=== PATIENT | male | born 2000 | race Caucasian/White ===

== ENCOUNTER 2021-12-03 17:11 | Emergency (ER) | payer MEDICAID ==
[2021-12-03] MEDS ORDERED: SODIUM CHLORIDE 0.9% 1000 ML 1,000 ML IV ONE (17:30)
[2021-12-03] MEDS ORDERED: ONDANSETRON 4 MG/2 ML INJ IV ONE (17:30)
[2021-12-03] MEDS ORDERED: DICYCLOMINE 20 MG/2 ML INJ IM ONE (17:31)
[2021-12-03 17:32] VITALS: BP 131/74
[2021-12-03 17:55] LABS: Hematocrit 41.7 % (35.5-45.6); Mean Corpuscular HGB Conc 34 % (32-34); Mean Corpuscular Volume 89 fl (84-94); Platelet Count 220 K/mm3 (140-440); Red Blood Count 4.68 M/mm3 (3.65-5.03); Red Cell Distribution Width 12.3 % (13.2-15.2)
[2021-12-03 18:16] LABS: Alanine Aminotransferase 11 units/L (7-56); Albumin 5.2 g/dL (3.9-5); Blood Urea Nitrogen 12 mg/dL (9-20); Hemolysis Index 19
[2021-12-03 18:25] LABS: BUN/Creatinine Ratio 20
== END 2021-12-04 02:04 | disposition left against medical advice (07) ==
LOC: ED 17:11
DX: R11.10 Vomiting, unspecified (principal); Z53.21 Procedure and treatment not carried out due to patient leaving prior to being seen by health care provider
CPT/HCPCS: 36415; 80053; 83690; 85027

== ENCOUNTER 2021-12-04 09:13 | Observation (INO) | payer MEDICAID ==
--- NOTE | 2021-12-04 10:46 | Emergency Department Report ---
ED Abdominal Pain HPI - General Chief Complaint: Abdominal Pain Stated Complaint: STOMACH PAIN Time Seen by Provider: 12/04/21 10:38 Source: EMS Mode of arrival: Stretcher Limitations: No Limitations - History of Present Illness Initial Comments: 21-year-old male presents to the ER with lower abdominal pain for 2 days with nausea and vomiting and decreased appetite. Patient reports he is unable to hold down any fluids or food. Patient reports taking nothing for symptoms. Patient denies diarrhea. Patient denies any abdominal surgery. Patient denies any suspicious food intake. Patient denies being around any sick contacts. MD Complaint: abdominal pain Onset/Timin -: days(s) - Related Data Previous Rx's Medication Instructions Recorded Last Taken Type oxyCODONE /ACETAMINOPHEN [Percocet 1 tab PO Q6H PRN #10 tablet 12/05/21 Unknown Rx 5/325 mg] Allergies Allergy/AdvReac Type Severity Reaction Status Date / Time raspberry Allergy Itching Verified 12/04/21 10:59 ED Review of Systems ROS: Stated complaint: STOMACH PAIN Other details as noted in HPI Comment: All other systems reviewed and negative Gastrointestinal: abdominal pain, nausea, vomiting. denies: diarrhea Genitourinary: denies: urgency, dysuria Skin: denies: rash ED Past Medical Hx - Medications Home Medications: Home Medications Medication Instructions Recorded Confirmed Last Taken Type oxyCODONE /ACETAMINOPHEN [Percocet 1 tab PO Q6H PRN #10 tablet 12/05/21 Unknown Rx 5/325 mg] ED Physical Exam - General Limitations: No Limitations General appearance: alert, in no apparent distress - Head Head exam: Present: atraumatic, normocephalic - Eye Eye exam: Present: normal appearance - ENT ENT exam: Present: mucous membranes moist - Neck Neck exam: Present: normal inspection - Respiratory Respiratory exam: Present: normal lung sounds bilaterally. Absent: respiratory distress - Cardiovascular Cardiovascular Exam: Present: regular rate, normal rhythm. Absent: systolic murmur, diastolic murmur, rubs, gallop - GI/Abdominal GI/Abdominal exam: Present: soft, tenderness, guarding, rebound, normal bowel sounds - Rectal Rectal exam: Present: deferred - Extremities Exam Extremities exam: Present: normal inspection - Back Exam Back exam: Present: normal inspection - Neurological Exam Neurological exam: Present: alert, oriented X3 - Psychiatric Psychiatric exam: Present: normal affect, normal mood - Skin Skin exam: Present: warm, dry, intact, normal color. Absent: rash ED Course Vital Signs 12/04/21 09:15 Temperature 99.2 F Pulse Rate 80 Respiratory 20 Rate Blood Pressure 149/93 [Right] O2 Sat by Pulse 100 Oximetry ED Medical Decision Making - Lab Data Result diagrams: 12/05/21 05:22 12/05/21 05:22 - Radiology Data Radiology results: report reviewed [facility] [address] [place] [address] Cat Scan Report Signed Patient: ELIZA JULIEN MR#: [id number] : 2000 Acct:[id number] Age/Sex: 21 / M ADM Date: 12/04/21 Loc: ED Attending Dr: Ordering Physician: VICENTE FIGUEROA NP Date of Service: 12/04/21 Procedure(s): CT abdomen pelvis w con Accession Number(s): [id number] cc: VICENTE FIGUEROA NP CT ABDOMEN AND PELVIS WITH CONTRAST HISTORY: lower abdominal pain - rule out appenditis. COMPARISON: None. TECHNIQUE: CT images of the abdomen and pelvis were obtained following administration of intravenous contrast. All CT scans at this location are performed using CT dose reduction for ALARA by means of automated exposure control. CONTRAST: 100 ml of intravenous contrast administered. FINDINGS: Lungs/bones: Lung bases are clear. No acute osseous abnormality identified. Abdomen/pelvis: There is mild periportal edema. The liver and biliary tree appear normal otherwise. Gallbladder is normal. The spleen, pancreas, adrenals, right kidney, and proximal GI tract appear unremarkable. There is a simple cyst in the upper pole of the left kidney. Urinary bladder and prostate appear unremarkable with no pelvic free fluid identified. Terminal ileum is normal. The appendix is dilated and fluid-filled with wall thickening and enhancement. The appendix measures 11 mm on image 118 of series 2. No free air or abscess to suggest perforation. No bowel obstruction. IMPRESSION: 1. Acute uncomplicated appendicitis. Signer Name: Simon Fuentes MD Signed: 12/04/2021 2:38 PM Workstation Name: [id number] Transcribed By: CORNELIA Dictated By: Simon Fuentes MD Electronically Authenticated By: Simon Fuentes MD Signed Date/Time: 12/04/21 1438 DD/ 1433 TD/TT: - Medical Decision Making 20-year-old male with no significant past medical history reports to the ER with lower abdominal pain pain for 2 days with nausea vomiting with also decrease in appetite. Patient unable to eat and drink due to nausea and vomiting. On physical exam patient has right lower quadrant pain with positive rebound tenderness. WBC is 18 CMP with no acute process noted CT of abdomen pelvis with contrastacute uncomplicated appendicitis noted. See CT report for more details. Started patient on Zosyn 3.375 mg IV. Paged surgery spoke with Dr. Hernandez around 1500 for patient to be admitted. Dr. Hernandez to see patient in ER. Patient reports a decrease in pain. Disposition is admission to surgery. Vital Signs 12/04/21 09:15 Temperature 99.2 F Pulse Rate 80 Respiratory 20 Rate Blood Pressure 149/93 [Right] O2 Sat by Pulse 100 Oximetry Lab Results 12/04/21 12/04/21 12/04/21 Range/Units 10:15 11:54 11:54 WBC 18.0 H (4.5-11.0) K/mm3 RBC 4.78 (3.65-5.03) M/mm3 Hgb 14.5 (11.8-15.2) gm/dl Hct 42.9 (35.5-45.6) % MCV 90 (84-94) fl MCH 30 (28-32) pg MCHC 34 (32-34) % RDW 12.7 L (13.2-15.2) % Plt Count 227 (140-440) K/mm3 Sodium 137 (137-145) mmol/L Potassium 3.9 (3.6-5.0) mmol/L Chloride 98.7 (98-107) mmol/L Carbon Dioxide 20 L (22-30) mmol/L Anion Gap 22 mmol/L BUN 10 (9-20) mg/dL Creatinine 0.6 L (0.8-1.3) mg/dL Estimated GFR > 60 ml/min BUN/Creatinine Ratio 17 % Glucose 89 (75-100) mg/dL Calcium 9.8 (8.4-10.2) mg/dL Total Bilirubin 1.40 H (0.1-1.2) mg/dL AST 14 (5-40) units/L ALT 9 (7-56) units/L Alkaline Phosphatase 55 (35-129) units/L Total Protein 7.8 (6.3-8.2) g/dL Albumin 5.1 H (3.9-5) g/dL Albumin/Globulin Ratio 1.9 % Lipase 8 L (13-60) units/L Urine Color Yellow (Yellow) Urine Turbidity Clear (Clear) Urine pH 7.0 (5.0-7.0) Ur Specific [place] 1.025 (1.003-1.030) Urine Protein 100 mg/dl (Negative) mg/dL Urine Glucose (UA) Negative (Negative) mg/dL Urine Ketones 3+ (Negative) mg/dL Urine Blood Negative (Negative) Urine Nitrite Negative (Negative) Urine Bilirubin Negative (Negative) Urine Urobilinogen 0.0 (<2.0) mg/dL Ur Leukocyte Esterase Negative (Negative) Urine WBC (Auto) < 1.0 (0.0-6.0) /HPF Urine RBC (Auto) 5.0 (0.0-6.0) /HPF U Epithel Cells (Auto) 1.0 (0-13.0) /HPF Critical care attestation.: If time is entered above; I have spent that time in minutes in the direct care of this critically ill patient, excluding procedure time. ED Disposition Clinical Impression: Acute appendicitis Qualifiers: Acute appendicitis type: other Qualified Code(s): K35.890 - Other acute appendicitis without perforation or gangrene Disposition: 09 ADMITTED INPATIENT Is pt being admited?: Yes Condition: Stable
[2021-12-04 10:57] LABS: Color,Urine Yellow (Yellow)
[2021-12-04 10:58] LABS: Bilirubin,Urine Negative (Negative)
[2021-12-04 10:59] LABS: Blood,Urine Negative (Negative)
[2021-12-04] MEDS ORDERED: MORPHINE 4 MG/1 ML INJ IV ONE (12:00)
[2021-12-04] MEDS ORDERED: ONDANSETRON 4 MG/2 ML INJ IV ONE (12:00)
[2021-12-04] MEDS ORDERED: SODIUM CHLORIDE 0.9% 1000 ML 1,000 ML IV ONE (12:00)
[2021-12-04 13:00] LABS: Alanine Aminotransferase 9 units/L (7-56); Albumin 5.1 g/dL (3.9-5); Blood Urea Nitrogen 10 mg/dL (9-20); Calcium 9.8 mg/dL (8.4-10.2); Hemolysis Index 23
[2021-12-04 13:01] LABS: BUN/Creatinine Ratio 17
[2021-12-04 13:23] LABS: WBC,Urine < 1.0 /HPF (0.0-6.0)
[2021-12-04 13:25] LABS: Hematocrit 42.9 % (35.5-45.6); Hemoglobin 14.5 gm/dl (11.8-15.2); Mean Corpuscular HGB Conc 34 % (32-34); Mean Corpuscular Volume 90 fl (84-94); Platelet Count 227 K/mm3 (140-440); Red Blood Count 4.78 M/mm3 (3.65-5.03); Red Cell Distribution Width 12.7 % (13.2-15.2)
--- NOTE | 2021-12-04 14:42 | Cat Scan Report ---
CT ABDOMEN AND PELVIS WITH CONTRAST HISTORY: lower abdominal pain - rule out appenditis. COMPARISON: None. TECHNIQUE: CT images of the abdomen and pelvis were obtained following administration of intravenous contrast. All CT scans at this location are performed using CT dose reduction for ALARA by means of automated exposure control. CONTRAST: 100 ml of intravenous contrast administered. FINDINGS: Lungs/bones: Lung bases are clear. No acute osseous abnormality identified. Abdomen/pelvis: There is mild periportal edema. The liver and biliary tree appear normal otherwise. Gallbladder is normal. The spleen, pancreas, adrenals, right kidney, and proximal GI tract appear unremarkable. There is a s imple cyst in the upper pole of the left kidney. Urinary bladder and prostate appear unremarkable with no pelvic free fluid identified. Terminal ileum is normal. The appendix is dilated and fluid-filled with wall thickening and enhancement. The append ix measures 11 mm on image 118 of series 2. No free air or abscess to suggest perforation. No bowel o bstruction. IMPRESSION: 1. Acute uncomplicated appendicitis. Signer Name: Simon Fuentes MD Signed: 12/04/2021 2:38 PM Workstation Name: [email or web address]
[2021-12-04] MEDS ORDERED: PIPERACILLIN/TAZOBACTAM 3.375 3.375 GM/50 ML BAG IV ONE (15:09)
--- NOTE | 2021-12-04 16:28 | History and Physical Report ---
History of Present Illness Chief complaint: It feels like something is crawling in my stomach History of present illness: 21 YO Male with no PMH presents to ED for evaluation. Patient reports "my stomach hurts". Patient states that he has experienced abdominal pain over the past 2 days with persistent symptoms over the same timeframe. Patient knowledges nausea, multiple episodes of vomiting, and diminished oral intake. Patient acknowledges inability to hold down liquids or solids. EMS was notified and upon arrival the patient was found to be in distress and subsequently transported to [facility] for further care and evaluation of the aforementioned symptoms. The patient was seen and evaluated in the emergency department. All lab and imaging studies reviewed. Patient with CT scan of the abdomen and pelvis and was found to have acute appendicitis, volume depletion, as well as systemic inflammatory response syndrome. Patient admitted to medical floor due to increased risk of worsening symptoms and for medical stabilization. Surgery team consulted in ED. Patient is pending surgical intervention. Patient denies fever, chills, chest pain, palpitation, productive cough, skin rash, recent contact, ingestion of food/water from new or different sources, or known exposure to COVID-19. No prior admission for review. No medication listed at time of admission for reconciliation. Advanced care planning conducted in ED. Past History Past Medical History: No medical history, other (Reviewed) Past Surgical History: No surgical history, Other (Reviewed) Social history: single, Lives alone. denies: smoking, alcohol abuse, prescription drug abuse Family history: hypertension Medications and Allergies Allergies Allergy/AdvReac Type Severity Reaction Status Date / Time raspberry Allergy Itching Verified 12/04/21 10:59 Review of Systems Constitutional: no weight loss, no weight gain, no fever, no sweats Ears, nose, mouth and throat: no ear pain, no tinnitis, no decreased hearing, no nose pain Cardiovascular: no chest pain, no orthopnea, no edema Respiratory: no cough, no cough with sputum, no excessive sputum, no hemoptysis Gastrointestinal: abdominal pain, nausea, vomiting, no constipation, no change in bowel habits, no hematemesis, no BRBPR, no loss of appetite Genitourinary Male: no hematuria, no flank pain, no discharge, no urinary frequency, no urinary hesitancy Rectal: no pain, no incontinence, no bleeding Musculoskeletal: no neck stiffness, no neck pain, no shooting arm pain, no low back pain Integumentary: no rash, no pruritis, no redness, no sores Neurological: no transient paralysis, no paralysis, no weakness, no numbness, no tingling, no seizures, no tremors Psychiatric: no anxiety, no sleep disturbances, no insomnia, no hypersomnia, no change in appetite, no change in libido Endocrine: no cold intolerance, no heat intolerance, no excessive thirst, no nocturia, no excessive sweating, no flushing, no weight change Hematologic/Lymphatic: no easy bruising, no lymphadenopathy, no lymphedema Allergic/Immunologic: no urticaria, no anaphylaxis Exam - Constitutional Vitals: Temp Pulse Resp BP Pulse Ox 99.2 F 80 20 149/93 100 12/04/21 09:15 12/04/21 09:15 12/04/21 09:15 12/04/21 09:15 12/04/21 09:15 General appearance: Present: mild distress - EENT Eyes: Present: PERRL ENT: hearing intact, clear oral mucosa - Neck Neck: Present: supple, normal ROM - Respiratory Respiratory effort: normal Respiratory: bilateral: CTA - Cardiovascular Heart Sounds: Present: S1 & S2. Absent: rub, click - Extremities Extremities: pulses symmetrical, No edema Peripheral Pulses: within normal limits - Abdominal General gastrointestinal: Present: soft, tender, non-distended, normal bowel sounds Localized gastrointestinal: tender: RLQ Male genitourinary: Present: normal - Rectal Rectal Exam: normal exam-external/orifice, normal rectal tone, nodular, tenderness - Integumentary Integumentary: Present: clear, warm, dry - Musculoskeletal Musculoskeletal: gait normal, strength equal bilaterally - Psychiatric Psychiatric: appropriate mood/affect, intact judgment & insight - Neurologic Neurologic: CNII-XII intact, moves all extremities Results - Labs CBC & Chem 7: 12/04/21 11:54 12/04/21 11:54 Labs: Abnormal lab results 12/04/21 12/04/21 Range/Units 11:54 11:54 WBC 18.0 H (4.5-11.0) K/mm3 RDW 12.7 L (13.2-15.2) % Carbon Dioxide 20 L (22-30) mmol/L Creatinine 0.6 L (0.8-1.3) mg/dL Total Bilirubin 1.40 H (0.1-1.2) mg/dL Albumin 5.1 H (3.9-5) g/dL Lipase 8 L (13-60) units/L Assessment and Plan - Patient Problems (1) Acute appendicitis Current Visit: Yes Status: Acute Qualifiers: Acute appendicitis type: other Qualified Code(s): K35.890 - Other acute appendicitis without perforation or gangrene; K35.89 - Other acute appendicitis Plan to address problem: Bowel rest, IV fluid resuscitation therapy, CT scan abdomen and pelvis, serial abdominal exam, patient is pending surgical intervention at this time. IV antibiotic therapy. (2) Volume depletion Current Visit: Yes Status: Acute Plan to address problem: IV fluid resuscitation therapy, monitor fluid balance. (3) SIRS (systemic inflammatory response syndrome) Current Visit: Yes Status: Acute Plan to address problem: CBC, chest x-ray, urinalysis, IV antibiotic therapy, supportive care. Repeat CBC in a.m. (4) Intractable nausea and vomiting Current Visit: Yes Status: Acute Plan to address problem: Antiemetic therapy, bowel rest, supportive care. (5) DVT prophylaxis Current Visit: Yes Status: Acute Plan to address problem: SCDs to bilateral lower extremities while in bed (6) Advance care planning Current Visit: Yes Status: Acute Plan to address problem: Disease education data, care plan discussed, diagnoses discussed, prognosis discussed, patient acknowledges understanding and agreement with care plan, +30 minutes. (7) Preventative health care Current Visit: Yes Status: Acute Plan to address problem: Patient counseled regarding safe driving, risk factor reduction, balanced diet, outpatient follow-up with primary care physician for all age and risk factor appropriate screening test. +30 minutes.
[2021-12-04] MEDS ORDERED: oxyCODONE /ACETAMINOPHEN 5-325MG TAB PO PRN (16:29)
[2021-12-04] MEDS ORDERED: ACETAMINOPHEN 325 MG TAB PO PRN (16:29)
[2021-12-04] MEDS ORDERED: ONDANSETRON 4 MG/2 ML INJ IV PRN ×2 (16:29→19:00)
[2021-12-04] MEDS ORDERED: HYDROmorphone 0.5 MG/0.5 ML INJ IV PRN ×2 (16:29→19:00)
[2021-12-04] MEDS ORDERED: ALBUTEROL 2.5 MG/3 ML NEBU IH PRN (16:29)
--- NOTE | 2021-12-04 16:38 | Consultation ---
History of Present Illness Consult date: 12/04/21 Reason for consult: abdominal pain - History of present illness History of present illness: 20-year-old male with no significant past medical history reports to the ER with lower abdominal pain pain for 2 days with nausea vomiting with also decrease in appetite. Patient unable to eat and drink due to nausea and vomiting. On physical exam patient has right lower quadrant pain with positive rebound tenderness. WBC is 18 CMP with no acute process noted CT of abdomen pelvis with contrastacute uncomplicated appendicitis noted. Medications and Allergies Allergies Allergy/AdvReac Type Severity Reaction Status Date / Time sriram Allergy Itching Verified 12/04/21 10:59 Active Meds: Active Medications Acetaminophen (Acetaminophen 325 Mg Tab) 650 mg PO Q4H PRN PRN Reason: Pain MILD(1-3)/Fever >100.5/BRAXTON Albuterol (Albuterol 2.5 Mg/3 Ml Nebu) 2.5 mg IH Q4HRT PRN PRN Reason: Shortness Of Breath Hydromorphone HCl (Hydromorphone 0.5 Mg/0.5 Ml Inj) 0.5 mg IV Q13H PRN PRN Reason: Pain , Severe (7-10) Sodium Chloride (Nacl 0.9% 1000 Ml) 1,000 mls @ 125 mls/hr IV DIRECT CELIA Ondansetron HCl (Ondansetron 4 Mg/2 Ml Inj) 4 mg IV Q8H PRN PRN Reason: Nausea And Vomiting Oxycodone/Acetaminophen (Oxycodone /Acetaminophen 5-325mg Tab) 1 tab PO Q6H PRN PRN Reason: Pain, Moderate (4-6) Sodium Chloride (Sodium Chloride 0.9% 10 Ml Flush Syringe) 10 ml IV BID CELIA Sodium Chloride (Sodium Chloride 0.9% 10 Ml Flush Syringe) 10 ml IV PRN PRN PRN Reason: LINE FLUSH Exam Vital Signs Temp Pulse Resp BP Pulse Ox 99.2 F 80 20 149/93 100 12/04/21 09:15 12/04/21 09:15 12/04/21 09:15 12/04/21 09:15 12/04/21 09:15 - General physical appearance Positive: moderate distress - Neck Positive: no masses, no bruits, trachea midline - Respiratory Positive: normal expansion - Cardiovascular Rhythm: regular - Extremities Extremities: no ischemia, No edema - Abdomen Abdomen: Present: soft, tender, rebound. Absent: distended, masses - Neurologic Neurologic: alert and oriented to time, place and person, motor strength and sensation are grossly intact, CN II-XII intact Results - Labs 12/04/21 11:54 12/04/21 11:54 Abnormal lab results 12/04/21 12/04/21 Range/Units 11:54 11:54 WBC 18.0 H (4.5-11.0) K/mm3 RDW 12.7 L (13.2-15.2) % Carbon Dioxide 20 L (22-30) mmol/L Creatinine 0.6 L (0.8-1.3) mg/dL Total Bilirubin 1.40 H (0.1-1.2) mg/dL Albumin 5.1 H (3.9-5) g/dL Lipase 8 L (13-60) units/L Diabetes panel 12/04/21 Range/Units 11:54 Sodium 137 (137-145) mmol/L Potassium 3.9 (3.6-5.0) mmol/L Chloride 98.7 (98-107) mmol/L Carbon Dioxide 20 L (22-30) mmol/L BUN 10 (9-20) mg/dL Creatinine 0.6 L (0.8-1.3) mg/dL Glucose 89 (75-100) mg/dL Calcium 9.8 (8.4-10.2) mg/dL AST 14 (5-40) units/L ALT 9 (7-56) units/L Alkaline Phosphatase 55 (35-129) units/L Total Protein 7.8 (6.3-8.2) g/dL Albumin 5.1 H (3.9-5) g/dL Calcium panel 12/04/21 Range/Units 11:54 Calcium 9.8 (8.4-10.2) mg/dL Albumin 5.1 H (3.9-5) g/dL Pituitary panel 12/04/21 Range/Units 11:54 Sodium 137 (137-145) mmol/L Potassium 3.9 (3.6-5.0) mmol/L Chloride 98.7 (98-107) mmol/L Carbon Dioxide 20 L (22-30) mmol/L BUN 10 (9-20) mg/dL Creatinine 0.6 L (0.8-1.3) mg/dL Glucose 89 (75-100) mg/dL Calcium 9.8 (8.4-10.2) mg/dL Adrenal panel 12/04/21 Range/Units 11:54 Sodium 137 (137-145) mmol/L Potassium 3.9 (3.6-5.0) mmol/L Chloride 98.7 (98-107) mmol/L Carbon Dioxide 20 L (22-30) mmol/L BUN 10 (9-20) mg/dL Creatinine 0.6 L (0.8-1.3) mg/dL Glucose 89 (75-100) mg/dL Calcium 9.8 (8.4-10.2) mg/dL Total Bilirubin 1.40 H (0.1-1.2) mg/dL AST 14 (5-40) units/L ALT 9 (7-56) units/L Alkaline Phosphatase 55 (35-129) units/L Total Protein 7.8 (6.3-8.2) g/dL Albumin 5.1 H (3.9-5) g/dL Assessment and Plan 20-year-old male with no significant past medical history reports to the ER with lower abdominal pain pain for 2 days with nausea vomiting with also decrease in appetite. Patient unable to eat and drink due to nausea and vomiting. On physical exam patient has right lower quadrant pain with positive rebound tenderness. WBC is 18 CMP with no acute process noted CT of abdomen pelvis with contrastacute uncomplicated appendicitis noted. Plan lap appendectomy this evening.
[2021-12-04] MEDS ORDERED: LIDOCAINE (1%) 10 MG/1 ML VIAL 20 ML MDV ONE (16:57)
[2021-12-04] MEDS ORDERED: BUPIVACAINE-EPINEPHRINE/PF 0.5%-1:200,000 (30 ML) VIAL INFILTRATI ONE ×2 (16:57→18:12)
--- NOTE | 2021-12-04 17:27 | Anesthesia Consultation ---
Anesthesia Consult and Med Hx Date of service: 12/04/21 - Airway Anesthetic Teeth Evaluation: Good, Crowns ROM Head & Neck: Adequate Mental/Hyoid Distance: Adequate Mallampati Class: Class I Intubation Access Assessment: Good - Pulmonary Exam CTA: Yes - Pre-Operative Health Status ASA Pre-Surgery Classification: ASA2, Emergency Proposed Anesthetic Plan: General - Pulmonary Hx Smoking: Yes (Marijuana daily) SOB: Yes Home Oxygen Therapy: No Hx Sleep Apnea: No - Cardiovascular System Hx Hypertension: No Hx Heart Murmur: Yes - Central Nervous System Hx Neuromuscular Disorder: No Hx Seizures: No Hx Psychiatric Problems: No - Gastrointestinal Hx Ulcer: No Hx Gastroesophageal Reflux Disease: No - Endocrine Hx Renal Disease: No Hx Liver Disease: No Hx Insulin Dependent Diabetes: No Hx Non-Insulin Dependent Diabetes: No Hx Thyroid Disease: No - Hematic Hx Anemia: No - Other Systems Hx Alcohol Use: No Hx Substance Use: Yes (marijuana daily) Hx Obesity: No - Additional Comments Anesthesia Medical History Comments: Denied previous anethesia complications
--- NOTE | 2021-12-04 17:28 | Anesthesia Day of Surgery ---
Anesthesia Day of Surgery - Day of Surgery Patient Examined: Yes Patient H&P Reviewed: Yes Patient is NPO: Yes Beta Blockers: No Cardiac Clearance: No Pulmonary Clearance: No
[2021-12-04] MEDS ORDERED: LIDOCAINE MPF (2%) 20 MG/1 ML VIAL 5 ML ONE (17:34)
[2021-12-04] MEDS ORDERED: ROCURONIUM 50 MG/5 ML INJ IV ONE (17:34)
[2021-12-04] MEDS ORDERED: ONDANSETRON 4 MG/2 ML INJ ONE (17:34)
[2021-12-04] MEDS ORDERED: propofoL 200 MG/20 ML VIAL IV ONE (17:35)
[2021-12-04] MEDS ORDERED: HYDROmorphone 1 MG/1 ML INJ ONE (17:35)
[2021-12-04] MEDS ORDERED: LIDOCAINE (1%) 10 MG/1 ML VIAL 20 ML MDV INFILTRATI ONE (18:12)
[2021-12-04] MEDS ORDERED: SODIUM CHLORIDE 0.9% IRR 1,500 ML BOTTLE IR ONE (18:13)
[2021-12-04] MEDS ORDERED: dexAMETHasone 20 MG/5 ML VIAL ONE (18:29)
[2021-12-04] MEDS ORDERED: GLYCOPYRROLATE 0.4 MG/2 ML INJ ONE (18:29)
[2021-12-04] MEDS ORDERED: NEOSTIGMINE 10MG/10 ML INJ MDV ONE (18:29)
[2021-12-04] MEDS ORDERED: LACTATED RINGERS 1,000 ML ONE (18:30)
[2021-12-04] MEDS ORDERED: KETOROLAC 30 MG/1 ML INJ ONE (18:34)
--- NOTE | 2021-12-04 18:38 | Operative Report ---
Operative Report Operative Report: Procedure date: 12/04/2021 Preop diagnosis: Acute appendicitis Postop diagnosis: Same Procedure: Laparoscopic appendectomy Surgeon: Dr. Hernandez Anesthesia: General endotracheal Estimated blood loss: 20 cc Specimen: Appendix Findings: This patient presents with a acute appendicitis diagnosed on CAT scan. He notes that he get in trouble he is taken to the OR and under general endotracheal anesthesia timeouts and consents are obtained. An Bhatt catheter is placed. Abdomen is prepped with ChloraPrep and 3 minutes later draped in a sterile fashion. A 2 mm incision is made in the l supraumbilical position and Veress needle was used to gain access peritoneal cavity. Abdomen is insufflated with CO2. 5 Lopez port is placed in the right upper quadrant and in the low midline. A 11 mm port is placed supraumbilically. The appendix is identified in the right lower quadrant and grasped with grasper s. The endoscopic LIANET stapler is used to separate the appendix from the base of the cecum. Harmonic scalpel was used to divide the mesoappendix. Specimen is then placed in a specimen bag and extracted through the 11 mm port. The fascial defect is then closed with a Carlos Henderson system and a 2-0 Vicryl stitch. Skin is then closed with 4-0 Monocryl and Dermabond.
--- NOTE | 2021-12-04 19:28 | Post Anesthesia Evaluation ---
- Post Anesthesia Evaluation Patient Participated: Yes Airway Patent: Yes Stable Respiratory Function: Yes Nausea/Vomiting: No Temp > 96.8F: Yes Pain Manageable: Yes Adequeate Hydration: Yes Anesthesia Complications: No Block Receding Appropriately: Not Applicable Patient on Ventilator: No
[2021-12-04] MEDS: SODIUM CHLORIDE 0.9% 1000 ML 1,000 ML IV SCH (21:09)
[2021-12-05 06:20] LABS: Hematocrit 38.5 % (35.5-45.6); Hemoglobin 13.1 gm/dl (11.8-15.2); Mean Corpuscular HGB Conc 34 % (32-34); Mean Corpuscular Volume 89 fl (84-94); Platelet Count 215 K/mm3 (140-440); Red Blood Count 4.31 M/mm3 (3.65-5.03); Red Cell Distribution Width 12.8 % (13.2-15.2)
[2021-12-05] MEDS: SODIUM CHLORIDE 0.9% 1000 ML 1,000 ML IV SCH (06:37)
[2021-12-05 06:44] LABS: BUN/Creatinine Ratio 13; Blood Urea Nitrogen 8 mg/dL (9-20); Calcium 8.9 mg/dL (8.4-10.2); Hemolysis Index 5
[2021-12-05] MEDS ORDERED: PIPERACILLIN/TAZOBACTAM 3.375 3.375 GM/50 ML BAG IV SCH (08:00)
[2021-12-05 08:10] LABS: Basophils % (Manual) 0 % (0.0-1.8); Eosinophils % (Manual) 0 % (0.0-4.3); Total Cells Counted 100
[2021-12-05 08:11] LABS: Platelet Estimate Consistent w Auto; RBC Morphology Normal
--- NOTE | 2021-12-05 09:19 | Progress Note ---
Assessment and Plan 20-year-old male with no significant past medical history reports to the ER with lower abdominal pain pain for 2 days with nausea vomiting with also decrease in appetite. Patient unable to eat and drink due to nausea and vomiting. On physical exam patient has right lower quadrant pain with positive rebound tenderness. WBC is 18 CMP with no acute process noted CT of abdomen pelvis with contrastacute uncomplicated appendicitis noted. Plan lap appendectomy completed yesterday evening. Patient feels well today. Okay to discharge today. Follow-up with me in 1 week Subjective Date of service: 12/05/21 Patient Reports: Positive: no new complaints, feels better, tolerating a regular diet, flatus Objective Vital Signs - 12hr 12/04/21 12/05/21 12/05/21 21:28 05:42 06:29 Temperature 97.9 F 98.8 F Pulse Rate 72 55 L Respiratory 14 20 Rate Blood Pressure 136/60 132/55 O2 Sat by Pulse 98 98 98 Oximetry - Labs 12/05/21 05:22 12/05/21 05:22 Diabetes panel 12/04/21 12/05/21 Range/Units 11:54 05:22 Sodium 137 139 (137-145) mmol/L Potassium 3.9 3.9 (3.6-5.0) mmol/L Chloride 98.7 100.9 (98-107) mmol/L Carbon Dioxide 20 L 23 (22-30) mmol/L BUN 10 8 L (9-20) mg/dL Creatinine 0.6 L 0.6 L (0.8-1.3) mg/dL Glucose 89 98 (75-100) mg/dL Calcium 9.8 8.9 (8.4-10.2) mg/dL AST 14 (5-40) units/L ALT 9 (7-56) units/L Alkaline Phosphatase 55 (35-129) units/L Total Protein 7.8 (6.3-8.2) g/dL Albumin 5.1 H (3.9-5) g/dL Calcium panel 12/04/21 12/05/21 Range/Units 11:54 05:22 Calcium 9.8 8.9 (8.4-10.2) mg/dL Albumin 5.1 H (3.9-5) g/dL Pituitary panel 12/04/21 12/05/21 Range/Units 11:54 05:22 Sodium 137 139 (137-145) mmol/L Potassium 3.9 3.9 (3.6-5.0) mmol/L Chloride 98.7 100.9 (98-107) mmol/L Carbon Dioxide 20 L 23 (22-30) mmol/L BUN 10 8 L (9-20) mg/dL Creatinine 0.6 L 0.6 L (0.8-1.3) mg/dL Glucose 89 98 (75-100) mg/dL Calcium 9.8 8.9 (8.4-10.2) mg/dL Adrenal panel 12/04/21 12/05/21 Range/Units 11:54 05:22 Sodium 137 139 (137-145) mmol/L Potassium 3.9 3.9 (3.6-5.0) mmol/L Chloride 98.7 100.9 (98-107) mmol/L Carbon Dioxide 20 L 23 (22-30) mmol/L BUN 10 8 L (9-20) mg/dL Creatinine 0.6 L 0.6 L (0.8-1.3) mg/dL Glucose 89 98 (75-100) mg/dL Calcium 9.8 8.9 (8.4-10.2) mg/dL Total Bilirubin 1.40 H (0.1-1.2) mg/dL AST 14 (5-40) units/L ALT 9 (7-56) units/L Alkaline Phosphatase 55 (35-129) units/L Total Protein 7.8 (6.3-8.2) g/dL Albumin 5.1 H (3.9-5) g/dL
[2021-12-05 12:50] VITALS: BP 122/59
--- NOTE | 2021-12-05 13:42 | Discharge Summary ---
Providers - Providers Date of Admission: 12/04/21 16:29 Date of discharge: 12/05/21 Attending physician: ROBERT FAJARDO Primary care physician: EFREM ROOT MD Hospitalization Condition: Stable Hospital course: 20-year-old male with no significant past medical history reports to the ER with lower abdominal pain pain for 2 days with nausea vomiting with also decrease in appetite. Patient unable to eat and drink due to nausea and vomiting. On physical exam patient has right lower quadrant pain with positive rebound tenderness. WBC was 18 CMP with no acute process noted CT of abdomen pelvis with contrastacute uncomplicated appendicitis noted. s/p lap appendectomy by Dr HOANG completed yesterday evening. Patient feels well today. Okay to discharge today. Follow-up with [facility] in 1 week Disposition: 01 HOME / SELF CARE / HOMELESS Final Discharge Diagnosis (Prints w/discharge instructions): -- Acute appendicitis, status post laparoscopic appendectomy. -- Acute peritonitis due to acute appendicitis, POA. resolved. -- volume depletion, resolved. -- N/V, due to appendicitis, resolved Time spent for discharge: 34 minutes Core Measure Documentation - Palliative Care Palliative Care/ Comfort Measures: Not Applicable - Core Measures Any of the following diagnoses?: none Exam - Physical Exam Narrative exam: Vitals noted and stable - Constitutional Vitals: Temp Pulse Resp BP Pulse Ox 98.3 F 54 L 18 122/59 98 12/05/21 11:29 12/05/21 11:29 12/05/21 11:29 12/05/21 11:29 12/05/21 12:56 Plan Activity: advance as tolerated Weight Bearing Status: Non-Weight Bearing Diet: regular Follow up with: EFREM ROOT MD [Primary Care Provider] - 3-5 Days DONALD HOANG MD [Staff Physician] - 7 Days Prescriptions: oxyCODONE /ACETAMINOPHEN [Percocet 5/325 mg] 1 tab PO Q6H PRN #10 tablet PRN Reason: Pain, Moderate (4-6)
== END 2021-12-05 14:10 | disposition home or self-care (01) ==
LOC: ED 09:13 → 3A 16:29 → INTOOBSV 16:29 → MERGE 16:29 → 3A 18:12
PROVIDERS: ADMIT Internal Medicine; ATTEND Internal Medicine
DX: K35.33 Acute appendicitis with perforation, localized peritonitis, and gangrene, with abscess (principal); R65.10 Systemic inflammatory response syndrome (SIRS) of non-infectious origin without acute organ dysfunction; E86.9 Volume depletion, unspecified; R11.2 Nausea with vomiting, unspecified; Z79.899 Other long term (current) drug therapy; Z98.890 Other specified postprocedural states
CPT/HCPCS: 36415; 44970; 74177; 80048; 80053; 81001; 83690; 85007; 85025; 85027; 88304; 96361; 96365; 96366; 96375; 99285; G0378; J1100; J1170; J1815; J1885; J2270; J2405; J2543; J2704; J2710; J3490; J7030; J7120; Q9967